=== PATIENT | male | born 1985 | race Caucasian/White ===

== ENCOUNTER 2023-03-30 12:27 | Inpatient (IN) ==
[2023-03-31] MEDS: Vitamin THERAPEUTIC TAB PO SCH (12:32)
[2023-04-01] MEDS: Vitamin THERAPEUTIC TAB PO SCH (08:01)
[2023-04-01 08:26] LABS: HDL Cholesterol 27.4 mg/dL
[2023-04-01] MEDS: Al Hydrox/Mg Hydrox/Simet LIQ 30 ML UDC PO PRN (20:06)
[2023-04-02] MEDS: Vitamin THERAPEUTIC TAB PO SCH (07:56)
[2023-04-02] MEDS: Al Hydrox/Mg Hydrox/Simet LIQ 30 ML UDC PO PRN (14:05)
[2023-04-03] MEDS: Vitamin THERAPEUTIC TAB PO SCH (08:02)
== END 2023-04-03 11:29 | disposition home or self-care (01) | DRG 756 ==
LOC: BSU 13:36
PROVIDERS: ADMIT Psychiatry & Neurology Psychiatry; ATTEND Psychiatry & Neurology Psychiatry